=== PATIENT | male | born 1930 | race Hispanic/Latino ===

== ENCOUNTER 2018-06-27 09:19 | Inpatient (IN) | payer MEDICARE, BC ==
[2018-06-27 09:19] VITALS: BMI 25.0
--- NOTE | 2018-06-27 10:13 | C.PDOC ---
History Of Present Illness 88yo male, sent to ER from skilled nursing due to complaints of hematuira. Patient states he was informed by his PMD to come to ER for further evaluation. He otherwise denies any fever, chills, dysuria, lower abdominal pain, lower back pain and offers no additional complaints. Time Seen by Provider: 06/27/18 09:35 Chief Complaint (Nursing): Male Genitourinary History Per: Patient History/Exam Limitations: no limitations Associated Symptoms: Urinary Symptoms. denies: Fever, Chills, Nausea, Vomiting, Back Pain, Chest Pain Additional History Per: Mcfp Past Medical History Reviewed: Historical Data, Nursing Documentation, Vital Signs Vital Signs: Last Vital Signs Temp 97.9 F 06/27/18 09:28 Pulse 82 06/27/18 09:28 Resp 20 06/27/18 09:28 BP 117/62 06/27/18 09:28 Pulse Ox 96 06/27/18 09:28 - Medical History PMH: No Chronic Diseases, Cardia Arrhythmia (MAT.), Chronic Kidney Disease - [facility] Procedures CONTRAST RENAL ARTERIOGR (11/21/01) TOTAL HIP REPLACEMENT (05/10/99) Family History: States: Unknown Family Hx - Social History Hx Alcohol Use: No (denies) Hx Substance Use: No (denies) Review Of Systems Except As Marked, All Systems Reviewed And Found Negative. Constitutional: Negative for: Fever, Chills Cardiovascular: Negative for: Chest Pain Respiratory: Negative for: Shortness of Breath Gastrointestinal: Negative for: Abdominal Pain Genitourinary: Positive for: Hematuria (reported hematuira). Negative for: Dysuria, Frequency Musculoskeletal: Negative for: Back Pain Physical Exam - Physical Exam Appears: Non-toxic, No Acute Distress Skin: Normal Color Head: Normacephalic Eye(s): bilateral: Normal Inspection Neck: Normal ROM, Supple Chest: Symmetrical Cardiovascular: Rhythm Regular Respiratory: Normal Breath Sounds Gastrointestinal/Abdominal: Normal Exam, Soft, No Tenderness Back: Normal Inspection, No CVA Tenderness Extremity: Normal ROM, No Pedal Edema Neurological/Psych: Oriented x3 ED Course And Treatment - Laboratory Results Result Diagrams: 06/27/18 10:28 06/27/18 10:28 ECG: Interpreted By Me, Viewed By Me ECG Rhythm: Atrial Fibrillation ECG Interpretation: No Changes From Prior Rate From EC O2 Sat by Pulse Oximetry: 96 (RA) Pulse Ox Interpretation: Normal Medical Decision Making Medical Decision Makinyo male sent to ER with reports of hematuira Unremarkable physical exam Plan: -- Labs -- EKG -- CXR -- Urinalysis [address] Zelaya due to hematuria. ekg afib. previous ekg with afib. cannot anticoagulate given hematuria. no cardiopulm complaints. Disposition - Disposition Disposition: HOSPITALIZED Disposition Time: 12:50 Condition: STABLE - Clinical Impression Clinical Impression: Hematuria - PA / [employer]IST / Resident Statement MD/DO has reviewed & agrees with the documentation as recorded. - Scribe Statement The provider has reviewed the documentation as recorded by the Sydney Sanchez Provider Attestation: All medical record entries made by the Sydney were at my direction and personally dictated by me. I have reviewed the chart and agree that the record accurately reflects my personal performance of the history, physical exam, medical decision making, and the department course for this patient. I have also personally directed, reviewed, and agree with the discharge instructions and disposition. Decision To Admit - Pt Status Changed To: Hospital Disposition Of: Inpatient - Admit Certification Admit to Inpatient:: After my assessment, the patient will require hospitalization for at least two midnights. This is because of the severity of symptoms shown, intensity of services needed, and/or the medical risk in this patient being treated as an outpatient. - InPatient: Physician Admission Certification: I certify that this patient requires 2 or more midnights of care for the following reason:: needs cysto h/h monitoring. - . Bed Request Type: Regular Admitting Physician: Darwin Zelaya Patient Diagnosis: Hematuria
[2018-06-27 10:32] LABS: BASO # 0.1 K/uL (0.0-0.2); BASO % 0.9 % (0.0-2.0); EOS # 0.4 K/uL (0.0-0.7); EOS % 6.4 % (0.0-4.0); HEMOGLOBIN 10.6 g/dL (12.0-18.0); LYMPH # 1.3 K/uL (1.0-4.3); LYMPH % 21.3 % (20.0-40.0); MEAN CELL VOLUME 95.4 fL (80.0-94.0); MEAN CORPUSCULAR HEMOGLOBIN 31.2 pg (27.0-31.0); MEAN CORPUSCULAR HGB CONC 32.7 g/dL (33.0-37.0); MEAN PLATELET VOLUME 8.3 fL (7.2-11.7); MONO # 0.6 K/uL (0.0-0.8); MONO % 10.6 % (0.0-10.0); NEUT # 3.6 K/uL (1.8-7.0); NEUT % 60.8 % (50.0-75.0); NRBC % 0.1 % (0.0-2.0); RBC 3.4 Mil/uL (4.40-5.90); RED CELL DISTRIBUTION WIDTH 15.4 % (11.5-14.5)
[2018-06-27 10:49] LABS: ALBUMIN 2.9 g/dL (3.5-5.0); ALT/SGPT 17 U/L (21-72); AST/SGOT 19 U/L (17-59); BLOOD UREA NITROGEN 29 mg/dL (9-20); CALCIUM 7.8 mg/dl (8.6-10.4); GFR NON-AFRICAN AMERICAN 57
[2018-06-27 10:59] LABS: INR 1.2; PROTHROMBIN TIME 12.8 SECONDS (9.7-12.2)
[2018-06-27 11:06] LABS: URINE BILIRUBIN NEGATIVE (NEGATIVE); URINE BLOOD 3+ (NEGATIVE); URINE CLARITY Hazy (Clear); URINE GLUCOSE (UA) NORMAL (Normal); URINE LEUKOCYTE ESTERASE NEG Leu/uL (Negative); URINE PROTEIN 2+ mg/dL (NEGATIVE); URINE UROBILINOGEN NORMAL mg/dL (0.2-1.0)
[2018-06-27 11:19] LABS: URINE COLOR Red (YELLOW)
--- NOTE | 2018-06-27 13:08 | RAD ---
Date of service: 06/27/2018 HISTORY: preop COMPARISON: No prior. FINDINGS: LUNGS: No consolidation. Crowding of infrahilar bronchovascular marking with shallow lung volumes. PLEURA: No significant pleural effusion identified, no pneumothorax apparent. CARDIOVASCULAR: There is presence of aortic atherosclerotic calcification on x-ray. Prominent ectatic thoracic aorta. Cardiomegaly. Minimal concomitant pulmonary venous congestion possible. No significant appearing pulmonary venous congestion believed present OSSEOUS STRUCTURES: Thoracic spondylosis. Bilateral shoulder arthrosis. VISUALIZED UPPER ABDOMEN: Normal. OTHER FINDINGS: None. IMPRESSION: Shallow lung volumes accentuating bronchovascular central markings. Mild cardiomegaly and aortic atherosclerotic vascular disease. No pulmonary consolidation pneumothorax or significant appearing pleural effusion.
[2018-06-27] MEDS ORDERED: Oxycodone/Acetaminophen 5/325 mg Tab PO PRN (17:43)
[2018-06-27] MEDS: Sodium Chloride 0.45% 1,000 ML IV SCH (18:33)
[2018-06-27] MEDS ORDERED: Iohexol 300 100 ML IJ ONE (20:50)
--- NOTE | 2018-06-28 03:38 | HP ---
HISTORY OF PRESENT ILLNESS: He was in [facility], having hematuria. He came on over the past three to four days, would not go away. I sent him to the [facility] to meet Dr. Mariama Coronel to come for cystoscopy to find out if there is anything else going on with him. No fever, chills, or sweats. No abdominal pain. Just painless hematuria. PAST MEDICAL HISTORY: Cardiac arrhythmia, chronic kidney disease, and arteriogram in the past, and total hip replacement in 1998. FAMILY HISTORY: Unknown family history. SOCIAL HISTORY: No alcohol. No drugs. No smoking. REVIEW OF SYSTEMS: No changes in vision, no changes in hearing although he has poor vision and poor hearing. No chills or fever. No chest pain or palpitations. No shortness of breath or cough. No abdominal pain, nausea, vomiting, constipation, diarrhea, or CVA tenderness. He does have hematuria but no pain and no increase in frequency. No back pain. No leg pain. No skin issues that he knows off. PHYSICAL EXAMINATION: VITAL SIGNS: He has a 97.9 temp, 82 pulse, 20 respiratory rate, 117/62 blood pressure, 96% O2 sat on room air. GENERAL: He is nontoxic. He is comfortable, in no acute distress. SKIN: Color is fine. Good turgor. No apparent rashes or ulcers appreciated. HEENT: Head is atraumatic and normocephalic. Extraocular muscles are intact. Throat moist. NECK: Supple. Thyroid midline. No palpable appreciable lymphadenopathy. HEART: Regular rate. LUNGS: Decreased breath sounds but clear. No wheezes, rhonchi or rales. ABDOMEN: Soft, nontender. Positive bowel sounds. No CVA tenderness. EXTREMITIES: No edema to the extremities. NEUROLOGICAL: He is alert and oriented x3. LABORATORY DATA: He had multiple tests done. His urinalysis showed 3+ blood, 14,337 rbc's in the urine. Sodium 136, potassium 4.4, BUN 29, creatinine 1.2, GFR 67, sugar is 121, calcium 7.8. Total bili is 0.4, AST is 19, ALT is 17, alk phos is 75, total protein is 5.8, albumin is 2.9, globulin is 2.9. His INR is 1.2. He has 6 white count, hemoglobin 10.6, hematocrit 32.4, platelets of 356. ASSESSMENT AND PLAN: He will be on intravenous fluids. He has his medications put back on. Had a chest x-ray which showed no acute disease, has small volume and will have intravenous fluids. Darwin Zelaya DO MTDAnahy
[2018-06-28 07:28] LABS: HEMOGLOBIN 9.7 g/dL (12.0-18.0); MEAN CELL VOLUME 94.8 fL (80.0-94.0); MEAN CORPUSCULAR HEMOGLOBIN 31.7 pg (27.0-31.0); MEAN CORPUSCULAR HGB CONC 33.5 g/dL (33.0-37.0); RBC 3.04 Mil/uL (4.40-5.90); RED CELL DISTRIBUTION WIDTH 15.1 % (11.5-14.5); WHITE BLOOD COUNT 6.7 K/uL (4.8-10.8)
[2018-06-28 07:56] LABS: ALB/GLOB RATIO 0.9 (1.0-2.1); ALBUMIN 2.7 g/dL (3.5-5.0)
--- NOTE | 2018-06-28 09:52 | CT ---
Date of service: 06/27/2018 PROCEDURE: CT Abdomen and Pelvis with and without intravenous contrast HISTORY: hematuria COMPARISON: None. TECHNIQUE: Axial images of the abdomen were obtained in the pre contrast, nephrographic phase and delayed excretory phases of enhancement. Coronal and sagittal reformats were generated. Contrast dose: 0 Radiation dose: Total exam DLP = 3407.53 mGy-cm. This CT exam was performed using one or more of the following dose reduction techniques: Automated exposure control, adjustment of the mA and/or kV according to patient size, and/or use of iterative reconstruction technique. FINDINGS: LOWER THORAX: Small bilateral pleural effusion, right greater than left. Cardiomegaly. Coronary arterial calcification. LIVER: Unremarkable. No gross lesion or ductal dilatation. GALLBLADDER AND BILE DUCTS: Cholelithiasis. Mild thickening of the wall. There are several small foci of low attenuation seen within the gallbladder lumen which may represent cholesterol stones. No pericholecystic fluid. Nonspecific. PANCREAS: Unremarkable. No gross lesion or ductal dilatation. SPLEEN: Few punctate calcifications consistent with old granulomatous disease. Normal size. No mass. ADRENALS: Right adrenalectomy in conjunction with right nephrectomy. Unremarkable left adrenal. KIDNEYS AND URETERS: Status post right nephrectomy. Multiple fluid density left renal masses, largest exophytic upper pole, measuring 6.3 cm. Two smaller cysts are identified, 2.0 cm and 1.4 cm. None of these demonstrate enhancement following intravenous contrast administration. Delayed excretory phase images demonstrate no filling defect within the left renal pelvicaliceal system, pelvis or left ureter. VASCULATURE: No evidence of abdominal aortic aneurysm. Possible short-segment aortic dissection in the distal abdominal aorta just above the iliac bifurcation. This likely extends into the proximal right common iliac artery. Probable intimal flap identified. There is atherosclerotic calcification of the abdominal aorta. BOWEL: No bowel obstruction. Right inguinal hernia containing loops of small bowel common nonobstructed. APPENDIX: Normal appendix. PERITONEUM: Right inguinal hernia containing nonobstructed loops of small bowel. Left inguinal hernia containing only mesenteric fat. No ascites. No pneumoperitoneum. LYMPH NODES: Unremarkable. No enlarged lymph nodes. BLADDER: Somewhat poorly circumscribed globular mass within the bladder lumen approximately 3.9 cm in diameter. This is adjacent to the right lateral wall of the bladder. Differential diagnosis includes localized clot or neoplasm. Lateral to the right lateral wall of the bladder there is a rounded mass in the perivesical space measuring approximately 3.4 cm in diameter. Differential diagnosis includes bladder diverticulum containing high attenuation blood, versus neoplasm. 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 Normal thickness of the bladder wall. REPRODUCTIVE: Enlarged prostate, up to 8.2 cm. BONES: There is albert destruction of the superior endplate and superior aspect of the L4 vertebral body without loss in height of the vertebra at this time. Strongly suspicious for pathologic fracture due to malignancy. There is also a lytic lesion in the L5 vertebral body, again without evidence of compression fracture. No other lytic or blastic osseous lesion is appreciated. There are Schmorl's nodes in the inferior L3 vertebral endplate. Evaluation with radionuclide bone scan is advised to assess for additional metastases elsewhere throughout the skeletal system. Multilevel degenerative disc disease. Grade 1 anterolisthesis L4-5, likely degenerative. As a result of disc bulge and listhesis at L4-5 as well as facet arthropathy and ligamentum flavum hypertrophy, there is severe spinal stenosis at L4-5. No evidence of epidural extension of suspected neoplasm at the L4 and L5 vertebral levels. Status post right hip arthroplasty. OTHER FINDINGS: None. IMPRESSION: Status post right nephrectomy and right ureterectomy. 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 Concerning for malignancy. Differential diagnosis includes clot within the bladder and blood filled diverticulum. Unremarkable left kidney and ureter aside from 3 left renal cysts. Possible short segment dissection of the distal abdominal aorta extending into the proximal right common iliac artery right inguinal hernia containing nonobstructed loops of small bowel. Left inguinal hernia containing only mesenteric fat and no bowel suspect bony metastasis to the L4 and L5 vertebrae. Recommend further evaluation with radionuclide bone scan. Cholelithiasis with mild thickening of the wall of the gallbladder, nonspecific. Correlate for cholecystitis bilateral pleural effusion, right greater than left. Cardiomegaly. Coronary arterial calcification. Right hip arthroplasty. The preliminary findings for this examination were reported by [facility] at 11:02 p.m. on 06/27/2018. There is discordance of this report with the preliminary findings. Findings of lytic destruction of the L4 and L5 vertebrae were not described in the preliminary report of this examination.
--- NOTE | 2018-06-28 14:10 | PN ---
DATE: 06/28/2018 SUBJECTIVE: I saw him resting in bed this morning. He is very upset that he cannot get any rest here. He is very uncomfortable. He is having blood in his urine, painless. He is waiting for procedure to be done. He's not a happy camper waiting for the procedure. MEDICATIONS: He is on Lopressor, Percocet, sodium bicarbonate, and IV fluids. PHYSICAL EXAMINATION: VITAL SIGNS: He has 97.8 temperature; 64 pulse; 157/94 blood pressure, little high; 20 respiratory rate; 90% O2 sat on room air. HEAD: Atraumatic, normocephalic. HEART: Regular rate. LUNGS: Decreased breath sounds, but clear. ABDOMEN: Soft. EXTREMITIES: No edema. LABORATORY DATA: He has 6 white count, 10.6 hemoglobin, 32.4 hematocrit with 366 platelets. INR is 1.2. Sodium 136, potassium is 4.4, BUN 29, creatinine 1.2, GFR is 57, sugar is 121. AST is 19, ALT is 17, alk phos 75. Labs from this morning are pending. Lot of blood in the urine. ASSESSMENT AND PLAN: I put him on a little metoprolol, he has been on that before. I put him on 25 b.i.d. for his blood pressure. Hopefully, he will do very well with the procedure this afternoon with Dr. Coronel. He is having a cystoscopy for his hematuria. Darwin Zelaya DO
[2018-06-28] MEDS ORDERED: Iohexol 240 (50 ml) ONE (14:32)
[2018-06-28] MEDS: cefTRIAXone 1 gm 1 GM/100 ML BAG IVPB ONE ×2 (14:40→14:52)
[2018-06-28] MEDS ORDERED: Propofol 10 mg/ml Inj (20 ML) ONE (14:51)
[2018-06-28] MEDS ORDERED: Midazolam 2 MG/2 ML VIAL ONE (14:51)
[2018-06-28] MEDS ORDERED: Phenylephrine 10 mg/ml Inj ONE (15:15)
[2018-06-28] MEDS ORDERED: ePHEDrine 50 mg/ml Inj ONE (15:15)
[2018-06-28] MEDS ORDERED: HYDROmorphone 0.5 mg/0.5 ml ISec IVP PRN (15:59)
--- NOTE | 2018-06-28 16:00 | CP.PCM.CON ---
Past Patient History - Infectious Disease Hx of Infectious Diseases: None - Past Social History Smoking Status: Former Smoker - CARDIAC Hx Cardiac Disorders: Yes - PULMONARY Hx Respiratory Disorders: No - NEUROLOGICAL Hx Neurological Disorder: Yes - HEENT Hx HEENT Problems: No - RENAL Hx Chronic Kidney Disease: Yes - ENDOCRINE/METABOLIC Hx Endocrine Disorders: No - HEMATOLOGICAL/ONCOLOGICAL Hx Blood Disorders: Yes Hx Cancer: Yes (REnal CA) Other/Comment: Right nephrectomy - INTEGUMENTARY Hx Dermatological Problems: No - MUSCULOSKELETAL/RHEUMATOLOGICAL Hx Arthritis: Yes (HIP R SURGERY) - GASTROINTESTINAL Hx Gastrointestinal Disorders: Yes Hx Gastroesophageal Reflux: Yes - GENITOURINARY/GYNECOLOGICAL Hx Prostate Problems: Yes (BPH) - PSYCHIATRIC Hx Substance Use: No - SURGICAL HISTORY Hx Surgeries: Yes Hx Musculoskeletal Surgery: Yes Other/Comment: right nephrectomy, right hip replacement - ANESTHESIA Hx Anesthesia: No Meds Allergies/Adverse Reactions: Allergies Allergy/AdvReac Type Severity Reaction Status Date / Time No Known Allergies Allergy Verified 06/12/18 13:38 - Medications Medications: Current Medications Sodium Chloride (Sodium Chloride 0.45%) 1,000 mls @ 40 mls/hr IV .Q24H [facility] Last Admin: 06/27/18 18:33 Dose: 40 mls/hr Influenza Virus Vaccine (Flucelvax Quad [id number] Syr) 60 mcg IM .ONCE ONE Stop: 06/30/18 10:01 Metoprolol Tartrate (Lopressor) 50 mg PO BID [facility] Last Admin: 06/28/18 09:41 Dose: 50 mg Oxycodone/Acetaminophen (Percocet 5/325 Mg Tab) 1 tab PO Q12 PRN PRN Reason: severe pain Stop: 06/30/18 17:44 Pneumococcal Polyvalent Vaccine (Pneumovax 23 Vaccine) 0.5 ml IM .ONCE ONE Stop: 06/30/18 10:01 Sodium Bicarbonate (Sodium Bicarbonate Tab) 650 mg PO BID [facility] Last Admin: 06/28/18 09:43 Dose: 650 mg Results - Vital Signs Recent Vital Signs: Last Vital Signs Temp 98.2 F 06/28/18 08:54 Pulse 60 06/28/18 08:54 Resp 20 06/28/18 08:54 BP 138/79 06/28/18 08:54 Pulse Ox 96 06/28/18 08:54 - Labs Result Diagrams: 06/28/18 07:21 06/28/18 07:21 Labs: Laboratory Results - last 24 hr 06/28/18 06/28/18 07:21 07:21 WBC 6.7 RBC 3.04 L Hgb 9.7 L Hct 28.8 L MCV 94.8 H MCH 31.7 H MCHC 33.5 RDW 15.1 H Plt Count 358 MPV 8.0 Sodium 137 Potassium 4.8 Chloride 105 Carbon Dioxide 27 Anion Gap 9 L BUN 25 H Creatinine 1.5 Est GFR ( Amer) 53 Est GFR (Non-Af Amer) 44 Random Glucose 91 D Calcium 8.0 L Total Bilirubin 0.3 AST 13 L D ALT 14 L Alkaline Phosphatase 79 Total Protein 5.5 L Albumin 2.7 L Globulin 2.8 Albumin/Globulin Ratio 0.9 L Assessment & Plan - Assessment and Plan (Free Text) Assessment: IMP: HEMATURIA SOLITARY L KIDNEY FULL NOTE TF - Date & Time Date: 06/28/18 Time: 11:50
[2018-06-28] MEDS ORDERED: Lactated Ringer's 1,000 ML IV ONE (16:02)
--- NOTE | 2018-06-28 16:03 | PCM.SURG1 ---
Surgeon's Initial Post Op Note - Surgeon's Notes Surgeon: Annia DRISCOLL Instructor Technical Training: NONE Type of Anesthesia: General LMA Pre-Operative Diagnosis: HEMATURIA Operative Findings: SAME Post-Operative Diagnosis: SAME. BLADDER CLOTS. ENLARGED PROSTATE. TRAB BLADDER. BLADDER DIVERTICULUM. BLEEDING OF PROSTATIC ORIGIN Operation Performed: CYSTO. EVACUATION OF BLADDER CLOTS. FULGURATION OF PROSTATE. EUA Specimen/Specimens Removed: NONE Estimated Blood Loss: EBL {In ML}: 100 Blood Products Given: N/A Post-Op Condition: Good Date of Surgery/Procedure: 06/28/18 Time of Surgery/Procedure: 15:50
--- NOTE | 2018-06-28 16:49 | RAD ---
Date of service: 06/28/2018 PROCEDURE: Intraoperative fluoroscopy HISTORY: HEMATURIA COMPARISON: Not available TECHNIQUE: Intraoperative fluoroscopy was provided for a cystogram. Total time of fluoroscopy was 6.0 sec. Cumulative dose was 0.05539 mGy meter squared. FINDINGS: Four fluoroscopic spot films are submitted. These demonstrate filling of what is likely a right-sided bladder diverticulum. Films are on file for review. IMPRESSION: ProScan be provided.
[2018-06-28] MEDS: Sodium Chloride 0.45% 1,000 ML IV SCH (18:17)
[2018-06-28 18:53] VITALS: RESP 20
--- NOTE | 2018-06-28 19:17 | CARD ---
APPROVED REPORT Date of service: 06/27/2018 EKG Measurement Heart [id number] <Conclusion> Atrial fibrillation Left axis deviation Incomplete right bundle branch block Septal infarct, age undetermined Abnormal ECG
[2018-06-29 06:43] LABS: HEMOGLOBIN 9.1 g/dL (12.0-18.0); MEAN CELL VOLUME 93.8 fL (80.0-94.0); MEAN CORPUSCULAR HEMOGLOBIN 31.1 pg (27.0-31.0); MEAN CORPUSCULAR HGB CONC 33.1 g/dL (33.0-37.0); MEAN PLATELET VOLUME 8.2 fL (7.2-11.7); RBC 2.92 Mil/uL (4.40-5.90); RED CELL DISTRIBUTION WIDTH 14.9 % (11.5-14.5); WHITE BLOOD COUNT 7.4 K/uL (4.8-10.8)
[2018-06-29 07:02] LABS: ALB/GLOB RATIO 0.9 (1.0-2.1); ALBUMIN 2.5 g/dL (3.5-5.0); ALT/SGPT 13 U/L (21-72); AST/SGOT 13 U/L (17-59); BLOOD UREA NITROGEN 24 mg/dL (9-20); CALCIUM 7.6 mg/dl (8.6-10.4); GFR NON-AFRICAN AMERICAN 57
--- NOTE | 2018-06-29 14:09 | PN ---
DATE: 06/29/2018 SUBJECTIVE: He is status post cystoscopy with cauterization of bladder that were bleeding. He is on Lopressor, Percocet, Proscar, IV fluids, and sodium bicarbonate. He has got a CBI running in his bladder. It looks fairly clear in the catheter. He is very hungry, feels well. No pain. Good spirits. PHYSICAL EXAMINATION: VITAL SIGNS: He has a 97.4 temperature, 65 pulse, 130/77 blood pressure, 20 respiratory rate, and 97% O2 sat on room air. HEAD: Atraumatic, normocephalic. HEART: Regular rate. LUNGS: Decreased breath sounds, but clear. ABDOMEN: Soft. EXTREMITIES: No edema. CBI is running. IV fluids are running. LABORATORY DATA: He has a 7.4 white count, 9.1 hemoglobin, 27.4 hematocrit, and 336 platelets, 1.2 INR. Sodium is 133, potassium 4.2, BUN 24, creatinine 1.2, GFR 67, sugar is 78, calcium 7.6. Total bili is 0.2, AST is 13, ALT is 13, alk phos is 81, total protein is 5.1. Urine had a lot of blood, and he is clearing up for CBI and cauterization of the bladder. PLAN: We will continue as per Urology when I take out the CBI. We will then get him back to [facility]. Continue his physical therapy. He has painless hematuria. Continue aggressive treatment and care on Maurisio Copeland. Check his labs tomorrow. Get him out of bed to chair if possible. Darwin Zelaya DO MTDD
[2018-06-29] MEDS: Sodium Chloride 0.45% 1,000 ML IV SCH (18:16)
[2018-06-30 01:26] VITALS: BP 111/56; PULSE 93; TEMP 98.5; O2SAT 94
[2018-06-30 07:39] LABS: HEMOGLOBIN 8.9 g/dL (12.0-18.0); MEAN CELL VOLUME 94.2 fL (80.0-94.0); MEAN CORPUSCULAR HEMOGLOBIN 31.5 pg (27.0-31.0); MEAN CORPUSCULAR HGB CONC 33.5 g/dL (33.0-37.0); MEAN PLATELET VOLUME 8.2 fL (7.2-11.7); RBC 2.84 Mil/uL (4.40-5.90); RED CELL DISTRIBUTION WIDTH 14.9 % (11.5-14.5); WHITE BLOOD COUNT 10.8 K/uL (4.8-10.8)
[2018-06-30 07:53] LABS: ALB/GLOB RATIO 0.9 (1.0-2.1); ALBUMIN 2.5 g/dL (3.5-5.0); CALCIUM 7.4 mg/dl (8.6-10.4)
[2018-06-30] MEDS ORDERED: Pneumococcal 23-Valent Vaccine IM ONE (10:00)
[2018-06-30] MEDS ORDERED: Influenza Vaccine 60 mcg/0.5 mL SYR (4YR UP) IM ONE (10:00)
[2018-06-30] MEDS ORDERED: cefTRIAXone IV 1 gm in Dextros 50 ML IVPB SCH (10:00)
[2018-06-30 10:59] LABS: SQUAMOUS EPITHIAL < 1 /hpf (0-5); URINE BACTERIA RARE (<OCC); URINE BILIRUBIN NEGATIVE (NEGATIVE); URINE BLOOD 3+ (NEGATIVE); URINE CLARITY Hazy (Clear); URINE COLOR Yellow (YELLOW); URINE GLUCOSE (UA) NORMAL (Normal); URINE LEUKOCYTE ESTERASE 2+ Leu/uL (Negative); URINE PROTEIN 2+ mg/dL (NEGATIVE); URINE UROBILINOGEN NORMAL mg/dL (0.2-1.0)
--- NOTE | 2018-06-30 22:34 | CON ---
DATE: 06/28/2018 UROLOGY CONSULTATION Urology consultation is requested by Dr. Darwin Zelaya. REASON FOR CONSULTATION: Urology consultation is requested because of hematuria. HISTORY OF PRESENT ILLNESS: The patient is an 88-year-old male with hematuria. The patient reports approximately a 1 to 2-week history of hematuria. The patient reports no fever. No flank pain. The patient has suprapubic discomfort. The patient reports no dysuria. The patient has no history of urolithiasis. No recent fever or rigors. Mr. Copeland reports that he had a catheter inserted during a previous hospitalization at [facility]. He had hematuria that time. The catheter was subsequently removed. The patient reports persistent hematuria. There is no nausea or vomiting. The patient has good appetite. Mr. Copeland presented to the emergency room. He is now admitted for evaluation and therapy. The patient was transferred from [facility]. The patient reports no chest pain. No shortness of breath. The patient has history of atrial fibrillation. PAST SURGICAL HISTORY: Includes, 1. Previous right hip replacement. 2. The patient had previous nephrectomy. The patient had a right nephrectomy performed for cancer. He reports the surgery was done approximately 15 to 20 years ago. SOCIAL HISTORY: The patient lives alone. He does not have children. He was not . The patient is retired. PHYSICAL EXAMINATION: GENERAL: The patient is a well-developed, well-nourished elderly male. The patient is awake and alert. The patient is oriented. The patient is comfortable. ABDOMEN: Soft, nontender, nondistended. No mass or organomegaly. BACK: No CVA tenderness. GENITOURINARY: The urine is bloody in the bedside urinal. Genitalia without inflammation. LABORATORY DATA: Reviewed. Hematocrit 32, platelet count ranged 56,000, and white blood count 6000. BUN 29, creatinine 1.2. EKG reveals atrial fibrillation. IMPRESSION: An 88-year-old male with gross hematuria, atrial fibrillation, solitary left kidney, anemia. Differential diagnosis for hematuria includes urinary tract infection, urolithiasis, and/or neoplasia. RECOMMENDATIONS AND PLAN: Urine culture. Urine cytology. Serum PSA. CAT scan. Cystoscopy. Further therapy to follow according to results of the above as well as the patient's clinical course. [place] MD Homer cc: Darwin Zelaya DO
--- NOTE | 2018-06-30 22:45 | OP ---
PROCEDURE DATE: 06/28/2018 UROLOGY OPERATIVE REPORT PREOPERATIVE DIAGNOSIS: Hematuria. POSTOPERATIVE DIAGNOSES: Hematuria, bleeding of prostatic origin, bladder diverticulum, trabeculated bladder, bladder clots. PROCEDURES: Cystoscopy, evacuation of bladder clots, fulguration of prostatic bleeding, cystogram. Procedure was performed under video endoscopic control as well as under fluoroscopic control. DESCRIPTION OF PROCEDURE: Procedure is as follows. The patient was placed in lithotomy position. Genitalia were prepped and draped sterilely. Perioperative antibiotics were administered. A 22-Citizen [place] cystoscope sheath was introduced under direct vision. Urethra, prostate and bladder were inspected with a 30-degree lens. FINDINGS: There was no stricture in the anterior urethra. There was prostatic enlargement. Prostatic urethra was approximately 6 cm in length and occlusive. There was marked bleeding from the prostatic urethral mucosal surface. There was active arterial bleeding. There were extensive clots within the bladder. Clot removal was performed using the Vu syringe as well as using the [place] scientific evacuator. However, a full clot removal could not be accomplished through the 22-Citizen [place] cystoscope sheath. A 26-Citizen [place] continuous flow resectoscope sheath was introduced under direct vision. Further efforts were made to remove the clots both with Vu syringe, the Microvasive evacuator, as well as the electrode resectoscope loop. Full clot removal was thus accomplished. The bladder was inspected. There was some decreased visibility due to the backbleeding from the prostate. There was no bladder tumor identified. There was no bladder stone. There was marked bladder trabeculation. The left ureteral orifice was identified. There were multiple diverticula. The largest bladder diverticulum was located on the right lateral wall of the bladder. This was a wide-mouth diverticulum. The bladder diverticulum was entered. There was no tumor identified or stone identified within the bladder diverticulum, although visibility was somewhat limited. The lateral garcia of the bladder were inspected. The anterior wall of the bladder was inspected. The floor of the bladder was inspected. There was no tumor identified. Fulguration was performed with the resectoscope loop as well as with the rollerball electrode, to achieve hemostasis within the prostatic urethra. The resectoscope sheath was removed. A Hudson catheter was inserted. Continuous bladder irrigation was applied. Bladder irrigation was clear. Cystogram was performed. Iodinated contrast dye was instilled via the Hudson catheter. Fluoroscopic views of the bladder were obtained. The cystogram demonstrated the bladder diverticulum. There was elevation of the bladder base consistent with prostatic hypertrophy. Exam under anesthesia was performed. The prostate was enlarged. Prostate was greater than 60 g in size. Prostate was smooth without fixation, induration or nodularity. The patient tolerated the procedure without complication. The patient was returned to supine position. The patient was transferred to recovery room in satisfactory condition. Mariama Coronel MD cc: Darwin Zelaya DO
--- NOTE | 2018-07-01 06:36 | DS ---
HISTORY OF PRESENT ILLNESS: He is off the CBI. He is on a Hudson catheter. It is quite burning him though he is very uncomfortable. He also refuses IV fluids, not sure why. The urine looks for the most part yellow, clear, but he has a lot of burning. He feels like he has an infection. I will give him a dose of Rocephin. Discussed with Dr. Coronel if he needs to be on Rocephin or Cipro or something like that if we can discharge him today; also can we discharge him today or does he want to watch him here with the Hudson catheter. He needs PHYLLIS as per Physical Therapy. He is on Lopressor, Percocet for pain, Proscar, and sodium bicarb. I gave him a dose of Rocephin. I ordered UA, C and S. I am hoping I could discharge him back to [facility] to continue his physical therapy. He has a 10.8 white count went up a little bit, 8.9 hemoglobin, 26.7 hematocrit with 318 platelets. Sodium is 132, potassium 4.2, BUN is 25, creatinine is 1.4, GFR is 48, sugar is 97, calcium 7.4. Total bili is 0.2, AST is 11, ALT is 12, alk phos is 76, total protein is 5.1. His urine, I repeated it today. We will see what Dr. Coronel, the urologist said, he did a cystoscopy on him. Darwin Zelaya DO MTDD
== END 2018-06-30 16:20 | DRG 713 ==
LOC: C.ER 09:19 → C.9E 10:58 → C.3T 14:53 → C.9E 15:21 → C.3T 15:23
PROVIDERS: ADMIT Family Medicine; ATTEND Family Medicine
PROC: 0TCB8ZZ Extirpation of Matter from Bladder, Via Natural or Artificial Opening Endoscopic (ICD-10-PCS; 2018-06-28)
PROC: BT10ZZZ Fluoroscopy of Bladder (ICD-10-PCS; 2018-06-28)
PROC: 0V508ZZ Destruction of Prostate, Via Natural or Artificial Opening Endoscopic (ICD-10-PCS; principal; 2018-06-28 13:00)
DX: N42.1 Congestion and hemorrhage of prostate (principal); N02.9 Recurrent and persistent hematuria with unspecified morphologic changes; N32.3 Diverticulum of bladder; N32.89 Other specified disorders of bladder; N40.0 Benign prostatic hyperplasia without lower urinary tract symptoms; N18.9 Chronic kidney disease, unspecified; D64.9 Anemia, unspecified; I48.91 Unspecified atrial fibrillation; K21.9 Gastro-esophageal reflux disease without esophagitis; Z96.641 Presence of right artificial hip joint; Z85.528 Personal history of other malignant neoplasm of kidney; Z87.891 Personal history of nicotine dependence; Z90.5 Acquired absence of kidney